=== PATIENT | female | born 1960 | race Caucasian/White ===

== ENCOUNTER 2018-06-30 11:42 | Inpatient (IN) | payer MEDICAID ==
[~2018-06-30] VITALS: Ht 144.8 cm; Wt 68.7 kg
[2018-06-30] MEDS ORDERED: hydrALAzine 20 MG INJ IV ONE (13:00)
[2018-06-30] MEDS ORDERED: BENA20TA4 PO (13:14)
--- NOTE | 2018-06-30 13:20 | ERD ---
ER Documentation Chief Complaint Chief Complaint c/o dizziness with right arm numbness x1 week. Hypertensive HPI This is a 57-year-old female with a history of hypertension who is on benazepril which was started last week who presents to the emergency room for evaluation of dizziness, chest pain, generalized weakness. The patient states that her symptoms have been present for the past 3 days however they got worse today. The patient states that she checked her blood pressure was extremely high so she came to the ER for evaluation. The patient states that she is having chest pain and describes as a pressure-like sensation in the center of the chest with mild radiation to the right and left arms. She denies any shortness of breath associated with this and describes her dizziness as a lightheaded sensation. ROS All systems reviewed and are negative except as per history of present illness. Medications Home Meds Reported Medications Benazepril Hcl* (Benazepril Hcl*) 20 Mg Tablet, 20 MG PO BID, #60 TAB 06/30/18 Allergies Allergies: Coded Allergies: No Known Allergy (Unverified , 06/30/18) PMhx/Soc History of Surgery: No Anesthesia Reaction: No Hx Neurological Disorder: No Hx Respiratory Disorders: No Hx Cardiac Disorders: Yes (HTN) Hx Psychiatric Problems: No Hx Miscellaneous Medical Probl: No Hx Alcohol Use: No Hx Substance Use: No Hx Tobacco Use: No Smoking Status: Never smoker Physical Exam Vitals Vital Signs Date Temp Pulse Resp B/P (MAP) Pulse Ox O2 O2 Flow FiO2 Time Delivery Rate 06/30/18 98.3 83 20 235/105 98 11:46 (148) Physical Exam Const: No acute distress Head: Atraumatic Eyes: Normal Conjunctiva ENT: Normal External Ears, Nose and Mouth. Neck: Full range of motion. No meningismus. Resp: Clear to auscultation bilaterally Cardio: Regular rate and rhythm, no murmurs Abd: Soft, non tender, non distended. Normal bowel sounds Skin: No petechiae or rashes Back: No midline or flank tenderness Ext: No cyanosis, or edema Neur: Awake and alert Psych: Normal Mood and Affect Result Diagram: 06/30/18 1227 06/30/18 1227 Results 24 hrs Laboratory Tests Test 06/30/18 12:27 White Blood Count 4.0 10^3/ul Red Blood Count 4.86 10^6/ul Hemoglobin 10.1 g/dl Hematocrit 35.1 % Mean Corpuscular Volume 72.2 fl Mean Corpuscular Hemoglobin 20.8 pg Mean Corpuscular Hemoglobin Concent 28.8 g/dl Red Cell Distribution Width 18.6 % Platelet Count 268 10^3/UL Mean Platelet Volume 11.1 fl Immature Granulocytes % 0.300 % Neutrophils % 75.2 % Lymphocytes % 19.0 % Monocytes % 3.5 % Eosinophils % 1.5 % Basophils % 0.5 % Nucleated Red Blood Cells % 0.0 /100WBC Immature Granulocytes # 0.010 10^3/ul Neutrophils # 3.0 10^3/ul Lymphocytes # 0.8 10^3/ul Monocytes # 0.1 10^3/ul Eosinophils # 0.1 10^3/ul Basophils # 0.0 10^3/ul Nucleated Red Blood Cells # 0.0 10^3/ul Sodium Level 143 mmol/L Potassium Level 3.9 mmol/L Chloride Level 105 mmol/L Carbon Dioxide Level 28 mmol/L Anion Gap 10 Blood Urea Nitrogen 14 mg/dl Creatinine 0.62 mg/dl Est Glomerular Filtrat Rate mL/min > 60 mL/min Glucose Level 111 mg/dl Calcium Level 9.4 mg/dl Total Bilirubin 0.2 mg/dl Direct Bilirubin 0.00 mg/dl Indirect Bilirubin 0.2 mg/dl Aspartate Amino Transf (AST/SGOT) 29 IU/L Alanine Aminotransferase (ALT/SGPT) 16 IU/L Alkaline Phosphatase 151 IU/L Troponin I < 0.012 ng/ml Total Protein 8.8 g/dl Albumin 4.6 g/dl Globulin 4.20 g/dl Albumin/Globulin Ratio 1.09 Lipase 239 U/L Current Medications Medications Dose Sig/Jayson Start Time Status Last (Trade) Ordered Route PRN Stop Time Admin Dose Reason Admin Hydralazine 10 mg ONCE ONCE 06/30/18 DC 06/30/18 HCl IV 13:00 06/30/18 12:52 (Apresoline) 13:01 Aspirin 81 mg ONCE ONCE 06/30/18 (Aspirin) PO 13:30 06/30/18 13:31 1 tab ONCE ONCE 06/30/18 Nitroglycerin SL 13:30 06/30/18 13:31 (Nitroglyceri n (Sl Tab) 0.4 Mg) Procedures/MDM EKG: #1 Rate/Rhythm: [Normal Sinus Rhythm] QRS, ST, T-waves: [No changes consistent w/ acute ischemia] Impression: [No evidence of ischemia or arrhythmia] EKG: #2 Rate/Rhythm: [Normal Sinus Rhythm] QRS, ST, T-waves: [No changes consistent w/ acute ischemia] Impression: [No evidence of ischemia or arrhythmia] Chest X-ray 1V Interpreted by me: Soft Tissue: No acute abnorma lities Bones: No acute abnormalities Mediastinum/Cardiac Silhouette/Lungs: [No acute abnormalities] This is a 57-year-old female with a history of hypertension, obesity who recently started benazepril for hypertension less than a week ago who presents to the emergency room today for evaluation of dizziness, generalized weakness, chest pain, and high blood pressure. On my evaluation the patient was hypertensive with BP of 235/105. Her heart rate was 77 bpm. The patient's EKG is nonischemic, her first troponin is negative, second EKG shows no evolution of ST segments. Her chest x-ray is clear, did give this patient 10 mg of IV hydralazine with approximately 20% reduction in her systolic blood pressure. The patient continues to have generalized weakness, and states that her chest pain has been constant. Given her age, risk factors, and uncontrolled hypertension this patient could be suffering from hypertensive emergency. She will need to be admitted for aggressive blood pressure control. The patient will be admitted to panel physician Dr. Frias at this time. Critical Care: Excluding all billable procedures Time: 44 minutes Treatments/Evaluations: Close monitoring and treatment of unstable vital signs, cardiorespiratory, and neurologic status, while maintaining tight balance of fluid, respiratory, and cardiac interventions. Departure Diagnosis: Primary Impression: Hypertensive emergency Additional Impressions: Chest pain Dizziness Condition: Stable MELISSA GARBER Jun 30, 2018 13:20
[2018-06-30] MEDS ORDERED: ONDANSETRON 4 MG INJ IV PRN ×2 (13:30→14:00)
[2018-06-30] MEDS ORDERED: ACETAMINOPHEN 325 MG TAB PO PRN (13:30)
[2018-06-30] MEDS ORDERED: ASPIRIN 81 MG TAB PO ONE (13:30)
[2018-06-30] MEDS ORDERED: NITROGLYCERIN (SL) 0.4 MG TAB SL ONE (13:30)
--- NOTE | 2018-06-30 13:36 | HP ---
Date/Time of Note Date/Time of Note DATE: 06/30/18 TIME: 13:36 Assessment/Plan VTE Prophylaxis SCD applied (from Nsg): Yes Pharmacological prophylaxis: LMWH Assessment/Plan Assessment/Plan 1. Acute chest pain - most likely secondary to hypertensive urgency - will check serial trops. Negative x1 - EKG without acute ST changes - ECHO ordered - TSH and A1c noted - lipid panel ordered 2. Right extremity weakness - CT scan shows chronic infarcts but given bilateral distribution, concern for embolic infarcts - will check MRI and MRA - ECHO with bubble ordered - continue Aspirin - Will hold off on Neurology consultation pending MRI results given chronic changes seen on CT scan 3. Hypertensive urgency - Will continue on home Benazepril and adjust as needed - Will add Norvasc as well and titrate as needed - PRN hydralazine on board 4. Anemia - will check iron levels 5. Diet - Cardiac 6. Disposition - Admit to telemetry for treatment of hypertensive urgency. Result Diagram: 06/30/18 1227 06/30/18 1227 Results 24hrs Laboratory Tests Test 06/30/18 12:27 White Blood Count 4.0 L Red Blood Count 4.86 Hemoglobin 10.1 L Hematocrit 35.1 L Mean Corpuscular Volume 72.2 L Mean Corpuscular Hemoglobin 20.8 L Mean Corpuscular Hemoglobin Concent 28.8 L Red Cell Distribution Width 18.6 H Platelet Count 268 Mean Platelet Volume 11.1 H Immature Granulocytes % 0.300 Neutrophils % 75.2 Lymphocytes % 19.0 Monocytes % 3.5 Eosinophils % 1.5 Basophils % 0.5 Nucleated Red Blood Cells % 0.0 Immature Granulocytes # 0.010 Neutrophils # 3.0 Lymphocytes # 0.8 Monocytes # 0.1 L Eosinophils # 0.1 Basophils # 0.0 Nucleated Red Blood Cells # 0.0 Sodium Level 143 Potassium Level 3.9 Chloride Level 105 Carbon Dioxide Level 28 Anion Gap 10 Blood Urea Nitrogen 14 Creatinine 0.62 Est Glomerular Filtrat Rate mL/min > 60 Glucose Level 111 Calcium Level 9.4 Total Bilirubin 0.2 Direct Bilirubin 0.00 Indirect Bilirubin 0.2 Aspartate Amino Transf (AST/SGOT) 29 Alanine Aminotransferase (ALT/SGPT) 16 Alkaline Phosphatase 151 H Troponin I < 0.012 Total Protein 8.8 H Albumin 4.6 Globulin 4.20 H Albumin/Globulin Ratio 1.09 Lipase 239 HPI/ROS Admit Date/Time Admit Date/Time 06/30/18 Hx of Present Illness 57 yo F with recent dx HTN presented to ED with dizziness, right upper extremity weakness, and chest pain. Patient states she has been experiencing worsening symptoms over the past 3 days. She was seen in clinic on Sunday due to RUE weakness and found with SBP in the 260s. She was on Benazepril which she has been taking. Patient states her symptoms worsened this am and checked her BP which was very high so she came to the ED. She also admitted to sternal chest pain, pressure like, moderate in severity. Admits to associated with dizziness but denies any shortness of breath, nausea, vomiting, abdominal pain, swelling, or urinary issues. Patient is unsure if she has any other medical issues. In the ED patient was found with SBP 220s and given Hydralazine with some improvement but BP again was elevated in 200s. Patient was given clonidine and nitro as well while in ED. ROS All 12 systems reviewed and pertinent positives as per HPI. All others negative. Constitutional: fatigue; No chills, No nausea Eyes: No discharge ENT: No congestion Respiratory: No cough, No shortness of breath, No sputum, No wheezing Cardiovascular: chest pain; No edema, No lightheadedness, No palpitations Gastrointestinal: No pain, No constipation, No diarrhea, No nausea, No vomiting Genitourinary: no complaints Musculoskeletal: No back pain, No neck pain Skin: No bruising, No laceration, No rash Neurologic: No confusion, No focal-weakness, No syncope Endocrine: no complaints Lymphatic: no complaints Psychological: nl mood/affect Immunologic: no complaints PMH/Family/Social Past Medical History Medical History: hypertension Medications Current Medications Aspirin (Aspirin) 81 mg ONCE ONCE PO ; Start 06/30/18 at 13:30; Stop 06/30/18 at 13:31 Nitroglycerin (Nitroglycerin (Sl Tab) 0.4 Mg) 1 tab ONCE ONCE SL ; Start 06/30/18 at 13:30; Stop 06/30/18 at 13:31 Coded Allergies: No Known Allergy (Unverified , 06/30/18) Past Surgical History Past Surgical Hx: other (tubal ligation) Family History Significant Family History: no pertinent family hx Social History Alcohol Use: none Smoking Status: Never smoker Drug Use: none Exam/Review of Systems Vital Signs Vitals Vital Signs Date Temp Pulse Resp B/P (MAP) Pulse Ox O2 O2 Flow FiO2 Time Delivery Rate 06/30/18 98.3 83 20 235/105 98 11:46 (148) Exam Exam General: Patient is laying in bed and answers questions appropriately. no acute distress Mentation: Patient is alert and oriented 4 Head: Normocephalic atraumatic Eyes: EOMI, pupils reactive to light Neck: Supple, nontender, midline Respiratory: Clear to auscultation bilaterally. no wheezing or rhonchi Cardiovascular: S1, S2, regular rate and rhythm, no obvious murmurs Gastrointestinal: soft, non-tender to palpation, bowel sounds heard. no rebound or guarding Neurological: Moves all extremities spontaneously. no focal deficits appreciated Skin: No skin lesions or rashes Additional Comments Home medications reviewed PROCEDURE: XR Chest. CLINICAL INDICATION: Chest pain TECHNIQUE: Single frontal view of the chest was obtained COMPARISON: None FINDINGS: The heart and mediastinum are within normal limits. The lungs are clear. There is no pleural effusion or pneumothorax. The bones and soft tissue show no acute change. IMPRESSION: No definite abnormalities are identified. RPTAT:AAJJ Physician Lucina Date Time Electronically viewed and signed by Wisam Richardson Physician on 06/30/2018 14:19 PROCEDURE: CT head CLINICAL INDICATION: Headaches TECHNIQUE: Contiguous 2.5 mm axial images were obtained from the vertex to the skull base. No intravenous contrast was administered. The calculated dose length product (DLP) = 634.23 mGy-cm. The CTDlvol = 39.60 mGy. One or more of the following dose reduction techniques were used: Automated exposure control, adjustment of the mA and or KV according to patient size, or use of iterative reconstruction technique. DICOM images are available. COMPARISON: None FINDINGS: There is no evidence of acute intracranial hemorrhage or acute territorial infarct. There is old right frontal deep white matter lacunar infarct and old left [place] radiata out a lacunar infarct. No mass or mass effect is seen on this noncontrast study. The ventricles and cisterns are normal in size and configuration. The flor-white matter differentiation is within normal limits. The visualized paranasal sinuses are normally aerated. The bony calvarium is unremarkable IMPRESSION: 1. No acute intracranial hemorrhage or acute territorial infarct. 2. 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 Given the patient's age and bilateral distribution, these may represent embolic lacunar infarcts. Consider further evaluation with MRI and MRA. RPTAT: HH .Rufus Das MD, MD Date Time Electronically viewed and signed by .Rufus Das MD, MD on 06/30/2018 14:55 RACHEL VILLALBA MD Jun 30, 2018 13:36
[2018-06-30] MEDS ORDERED: morphine 2 MG INJ IV PRN (14:00)
[2018-06-30] MEDS ORDERED: HYDROCODONE/APAP (5/325) TAB PO PRN (14:00)
[2018-06-30] MEDS ORDERED: DOCUSATE SODIUM 100 MG CAP PO PRN (14:00)
[2018-06-30] MEDS ORDERED: MAGNESIUM HYDROXIDE 30ML CUP PO PRN (14:00)
[2018-06-30] MEDS ORDERED: NITROGLYCERIN (SL) 0.4 MG TAB SL PRN (14:00)
[2018-06-30] MEDS ORDERED: LORAZEPAM 2 MG INJ IV PRN (14:00)
[2018-06-30] MEDS ORDERED: NACL 0.9% 3 ML SYG IV SCH (14:00)
[2018-06-30] MEDS: AMLODIPINE 5 MG TAB PO SCH (15:55)
[2018-06-30 16:53] VITALS: BP 150/72; PULSE 76; RESP 18
[2018-06-30 16:57] VITALS: Ht 144.8 cm; Wt 68.7 kg
[2018-06-30 17:07] VITALS: PULSE 75
[2018-06-30 20:00] VITALS: PULSE 67
[2018-06-30 20:05] VITALS: BP 142/75; PULSE 70; RESP 19
[2018-06-30] MEDS: FAMOTIDINE 20 MG TAB PO SCH (20:48)
[2018-06-30] MEDS: BENAZEPRIL 20 MG TAB PO SCH (20:48)
[2018-06-30] MEDS: ACETAMINOPHEN 325 MG TAB PO PRN (20:49)
[2018-06-30 23:42] VITALS: BP 140/67; PULSE 67; RESP 19
[2018-07-01] VITALS (10 sets, daily range): BP systolic 137–153; BP diastolic 67–79; PULSE 57–72; RESP 18–19
[2018-07-01] MEDS: FAMOTIDINE 20 MG TAB PO SCH ×2 (08:23→20:04)
[2018-07-01] MEDS: ASPIRIN 81 MG TAB PO SCH (08:24)
[2018-07-01] MEDS: AMLODIPINE 5 MG TAB PO SCH (08:24)
[2018-07-01] MEDS: BENAZEPRIL 20 MG TAB PO SCH ×2 (08:24→20:04)
[2018-07-01] MEDS ORDERED: ENOXAPARIN 40 MG/0.4 ML SYG SC SCH (09:00)
--- NOTE | 2018-07-01 12:35 | CONS ---
Consultation Date/Type/Reason Admit Date/Time 06/30/18 Type of Consult Neurology Date/Time of Note DATE: 07/01/18 TIME: 12:34 Exam/Review of Systems Exam Vitals Vital Signs Date Temp Pulse Resp B/P (MAP) Pulse Ox O2 O2 Flow FiO2 Time Delivery Rate 07/01/18 98.2 63 18 137/79 96 Room Air 11:32 (98) Intake and Output 06/30/18 06/30/18 07/01/18 1515:00 23:00 07:00 IntakeIntake Total 680 ml BalanceBalance 680 ml Results Result Diagram: 07/01/18 0550 07/01/18 0550 Results 24hrs Laboratory Tests Test 06/30/18 14:08 06/30/18 17:16 06/30/18 20:48 07/01/18 05:50 Urine Color COLORLESS Urine Clarity CLEAR Urine pH 8.0 Urine Specific [place] 1.004 Urine Ketones NEGATIVE Urine Nitrite NEGATIVE Urine Bilirubin NEGATIVE Urine Urobilinogen NEGATIVE Urine Leukocyte Esterase NEGATIVE Urine Hemoglobin NEGATIVE Urine Glucose NEGATIVE Urine Total Protein NEGATIVE Creatine Kinase 49 45 Creatine Kinase Index 1.7 1.8 Creatinine Kinase MB 0.82 0.80 (Mass) Troponin I < 0.012 < 0.012 White Blood Count 4.7 L Red Blood Count 4.39 Hemoglobin 9.2 L Hematocrit 31.9 L Mean Corpuscular Volume 72.7 L Mean Corpuscular 21.0 L Hemoglobin Mean Corpuscular 28.8 L Hemoglobin Concent Red Cell Distribution 18.8 H Width Platelet Count 251 Mean Platelet Volume 10.5 H Immature Granulocytes % 0.400 Neutrophils % 63.8 Lymphocytes % 26.9 Monocytes % 6.6 Eosinophils % 1.9 Basophils % 0.4 Nucleated Red Blood 0.0 Cells % Immature Granulocytes # 0.020 Neutrophils # 3.0 Lymphocytes # 1.3 Monocytes # 0.3 Eosinophils # 0.1 Basophils # 0.0 Nucleated Red Blood 0.0 Cells # Sodium Level 142 Potassium Level 4.2 Chloride Level 105 Carbon Dioxide Level 28 Anion Gap 9 Blood Urea Nitrogen 19 Creatinine 0.79 Est Glomerular Filtrat > 60 Rate mL/min Glucose Level 109 Calcium Level 9.3 Magnesium Level 2.0 Triglycerides Level 131 Cholesterol Level 139 LDL Cholesterol, 75 Calculated HDL Cholesterol 38 Cholesterol/HDL Ratio 3.6 Medications Medication Current Medications Benazepril HCl (Lotensin) 20 mg BID PO Last administered on 07/01/18 08:24; Admin Dose 20 MG; Start 06/30/18 at 21:00 Amlodipine Besylate (Norvasc) 5 mg DAILY PO Last administered on 07/01/18 08:24; Admin Dose 5 MG; Start 06/30/18 at 14:00 IV Flush (NS 3 ml) 3 ml PER PROTOCOL IV ; Start 06/30/18 at 14:00 Lorazepam (Ativan) 0.5 mg Q6H PRN IV .ANXIETY; Start 06/30/18 at 14:00 Ondansetron HCl (Zofran Inj) 4 mg Q6H PRN IV NAUSEA/VOMITING; Start 06/30/18 at 14:00 Nitroglycerin (Nitroglycerin (Sl Tab) 0.4 Mg) 1 tab Q5M PRN SL .CHEST PAIN; Start 06/30/18 at 14:00 Acetaminophen (Tylenol Tab) 650 mg Q6H PRN PO .PAIN 1-3 OR TEMP Last administered on 06/30/18at 20:49; Admin Dose 650 MG; Start 06/30/18 at 14:00 Acetaminophen/ Hydrocodone Bitart ([place] (5/325)) 1 tab Q6H PRN PO .PAIN 4-6; Start 06/30/18 at 14:00 Morphine Sulfate (morphine) 2 mg Q4H PRN IV .PAIN 7-10; Start 06/30/18 at 14:00 Docusate Sodium (Colace) 100 mg Q12H PRN PO .CONSTIPATION; Start 06/30/18 at 14:00 Magnesium Hydroxide (Milk Of Mag) 30 ml DAILY PRN PO .CONSTIPATION; Start 06/30/18 at 14:00 Famotidine (Pepcid) 20 mg Q12 PO Last administered on 07/01/18 08:23; Admin Dose 20 MG; Start 06/30/18 at 21:00 Enoxaparin Sodium (Lovenox) 40 mg DAILY SC Last administered on 07/01/18at 08:29; Admin Dose 40 MG; Start 07/01/18 at 09:00 Hydralazine HCl (Apresoline) 10 mg Q4H PRN IV SBP >170; Start 06/30/18 at 14:00 Aspirin (Aspirin) 81 mg DAILY PO Last administered on 07/01/18at 08:24; Admin Dose 81 MG; Start 07/01/18 at 09:00 Past Medical History Medical History: hypertension Home Meds Reported Medications Benazepril Hcl* (Benazepril Hcl*) 20 Mg Tablet, 20 MG PO BID, #60 TAB 06/30/18 Medications Current Medications Benazepril HCl (Lotensin) 20 mg BID PO Last administered on 07/01/18at 08:24; Admin Dose 20 MG; Start 06/30/18 at 21:00 Amlodipine Besylate (Norvasc) 5 mg DAILY PO Last administered on 07/01/18at 08:24; Admin Dose 5 MG; Start 06/30/18 at 14:00 IV Flush (NS 3 ml) 3 ml PER PROTOCOL IV ; Start 06/30/18 at 14:00 Lorazepam (Ativan) 0.5 mg Q6H PRN IV .ANXIETY; Start 06/30/18 at 14:00 Ondansetron HCl (Zofran Inj) 4 mg Q6H PRN IV NAUSEA/VOMITING; Start 06/30/18 at 14:00 Nitroglycerin (Nitroglycerin (Sl Tab) 0.4 Mg) 1 tab Q5M PRN SL .CHEST PAIN; Start 06/30/18 at 14:00 Acetaminophen (Tylenol Tab) 650 mg Q6H PRN PO .PAIN 1-3 OR TEMP Last administered on 06/30/18at 20:49; Admin Dose 650 MG; Start 06/30/18 at 14:00 Acetaminophen/ Hydrocodone Bitart ([place] (5/325)) 1 tab Q6H PRN PO .PAIN 4-6; Start 06/30/18 at 14:00 Morphine Sulfate (morphine) 2 mg Q4H PRN IV .PAIN 7-10; Start 06/30/18 at 14:00 Docusate Sodium (Colace) 100 mg Q12H PRN PO .CONSTIPATION; Start 06/30/18 at 14:00 Magnesium Hydroxide (Milk Of Mag) 30 ml DAILY PRN PO .CONSTIPATION; Start 06/30/18 at 14:00 Famotidine (Pepcid) 20 mg Q12 PO Last administered on 07/01/18at 08:23; Admin Dose 20 MG; Start 06/30/18 at 21:00 Enoxaparin Sodium (Lovenox) 40 mg DAILY SC Last administered on 07/01/18at 08:29; Admin Dose 40 MG; Start 07/01/18 at 09:00 Hydralazine HCl (Apresoline) 10 mg Q4H PRN IV SBP >170; Start 06/30/18 at 14:00 Aspirin (Aspirin) 81 mg DAILY PO Last administered on 07/01/18at 08:24; Admin Dose 81 MG; Start 07/01/18 at 09:00 Allergies: Coded Allergies: No Known Allergy (Unverified , 06/30/18) Past Surgical History Past Surgical Hx: other (tubal ligation) Social History Alcohol Use: none Smoking Status: Never smoker Drug Use: none JEREMY GUZMAN NP Jul 01, 2018 12:34
--- NOTE | 2018-07-01 13:26 | CONS ---
Assessment/Plan Assessment/Plan Hospital Course 57 F c/ Hx of HTN..who presents for evaluation of severely elevated BP. Head CT was obtained, which showed ? chronic lacunes.. Follow up MRI brain revealed multiple subcortical T2 hyperintensities w/ a focus of L periventricular restricted diffusion concerning for demyelination...for which neurology is consulted. There is no concomitant enhancement . Furthermore, the clinical history is without prior episodes of loss of neurologic function to corroborate a Dx of multiple sclerosis.. Of note, restricted diffusion could alternatively represent acute infarction.. MRA is unrevealing LDL 75 P: Add HIV, RPR, UDS, ESR Agree w/ asa and lipitor daily for stroke prevention for now Await Echocardiogram Check coags, then LP for CSF evaluation to include IgG synthesis and oligoclonal bands.. Add MRI C spine to evaluate for cervical demyelination.. Steroids not presently indicated PT/OT/ST as necessary Will follow clinically Consultation Date/Type/Reason Admit Date/Time 06/30/18 Type of Consult Neurology Reason for Consultation weakness Requesting Provider: DAMON KAUR Date/Time of Note DATE: 07/01/18 TIME: 13:11 Hx of Present Illness 57 yo F with recent dx HTN presented to ED with dizziness, right upper extremity weakness, and chest pain. Patient states she has been experiencing worsening symptoms over the past 3 days. She was seen in clinic on Sunday due to RUE weakness and found with SBP in the 260s. She was on Benazepril which she has been taking. Patient states her symptoms worsened this am and checked her BP which was very high so she came to the ED. She also admitted to sternal chest pain, pressure like, moderate in severity. Admits to associated with dizziness but denies any shortness of breath, nausea, vomiting, abdominal pain, swelling, or urinary issues. Patient is unsure if she has any other medical issues. In the ED patient was found with SBP 220s and given Hydralazine with some improvement but BP again was elevated in 200s. Patient was given clonidine and nitro as well while in ED. negative unless noted otherwise in HPI Exam/Review of Systems Exam Vitals Vital Signs Date Temp Pulse Resp B/P (MAP) Pulse Ox O2 O2 Flow FiO2 Time Delivery Rate 07/01/18 98.2 63 18 137/79 96 Room Air 11:32 (98) Intake and Output 4/706/30/18 07/01/18 1515:00 23:00 07:00 IntakeIntake Total 680 ml BalanceBalance 680 ml Exam PE: Gen Appearance: No Apparent Distress HEENT: Normocephalic Cardiovascular: Regular rate Lungs: Clear bilaterally Abdomen: Soft Extremities: Dry NE: The patient was alert and oriented. Language was normal. Fund of knowledge was normal. Pupils were equal and reactive to light. There was no afferent pupillary defect. Visual kevin were normal. Funduscopic examination was limited. Extra-ocular movements were full. Ptosis was absent. There was no nystagmus. Facial sensation was normal. Face was symmetric with normal strength. Hearing was intact. Palate movements were normal. Neck strength was normal. There was normal tongue bulk and speed of movement. Tone was normal. Muscle bulk was normal. I did not see fasciculations. Arms and legs were strong to confrontation. Vibration sensation was normal. Temperature and pinprick sensation was normal. Rapid alternating movements were normal. There was no dysmetria. There was no intention tremor. Gait was deferred due to bedrest. Arm and leg reflexes were 2+ and symmetric. Raza's sign was absent. Plantar responses were flexor. Results Result Diagram: 07/01/18 0550 07/01/18 0550 Results 24hrs Laboratory Tests Test 06/30/18 14:08 06/30/18 17:16 06/30/18 20:48 07/01/18 05:50 Urine Color COLORLESS Urine Clarity CLEAR Urine pH 8.0 Urine Specific [place] 1.004 Urine Ketones NEGATIVE Urine Nitrite NEGATIVE Urine Bilirubin NEGATIVE Urine Urobilinogen NEGATIVE Urine Leukocyte Esterase NEGATIVE Urine Hemoglobin NEGATIVE Urine Glucose NEGATIVE Urine Total Protein NEGATIVE Creatine Kinase 49 45 Creatine Kinase Index 1.7 1.8 Creatinine Kinase MB 0.82 0.80 (Mass) Troponin I < 0.012 < 0.012 White Blood Count 4.7 L Red Blood Count 4.39 Hemoglobin 9.2 L Hematocrit 31.9 L Mean Corpuscular Volume 72.7 L Mean Corpuscular 21.0 L Hemoglobin Mean Corpuscular 28.8 L Hemoglobin Concent Red Cell Distribution 18.8 H Width Platelet Count 251 Mean Platelet Volume 10.5 H Immature Granulocytes % 0.400 Neutrophils % 63.8 Lymphocytes % 26.9 Monocytes % 6.6 Eosinophils % 1.9 Basophils % 0.4 Nucleated Red Blood 0.0 Cells % Immature Granulocytes # 0.020 Neutrophils # 3.0 Lymphocytes # 1.3 Monocytes # 0.3 Eosinophils # 0.1 Basophils # 0.0 Nucleated Red Blood 0.0 Cells # Sodium Level 142 Potassium Level 4.2 Chloride Level 105 Carbon Dioxide Level 28 Anion Gap 9 Blood Urea Nitrogen 19 Creatinine 0.79 Est Glomerular Filtrat > 60 Rate mL/min Glucose Level 109 Calcium Level 9.3 Magnesium Level 2.0 Triglycerides Level 131 Cholesterol Level 139 LDL Cholesterol, 75 Calculated HDL Cholesterol 38 Cholesterol/HDL Ratio 3.6 Medications Medication Current Medications Benazepril HCl (Lotensin) 20 mg BID PO Last administered on 07/01/18at 08:24; Admin Dose 20 MG; Start 06/30/18 at 21:00 Amlodipine Besylate (Norvasc) 5 mg DAILY PO Last administered on 07/01/18at 08:24; Admin Dose 5 MG; Start 06/30/18 at 14:00 IV Flush (NS 3 ml) 3 ml PER PROTOCOL IV ; Start 06/30/18 at 14:00 Lorazepam (Ativan) 0.5 mg Q6H PRN IV .ANXIETY; Start 06/30/18 at 14:00 Ondansetron HCl (Zofran Inj) 4 mg Q6H PRN IV NAUSEA/VOMITING; Start 06/30/18 at 14:00 Nitroglycerin (Nitroglycerin (Sl Tab) 0.4 Mg) 1 tab Q5M PRN SL .CHEST PAIN; Start 06/30/18 at 14:00 Acetaminophen (Tylenol Tab) 650 mg Q6H PRN PO .PAIN 1-3 OR TEMP Last administered on 06/30/18at 20:49; Admin Dose 650 MG; Start 06/30/18 at 14:00 Acetaminophen/ Hydrocodone Bitart ([place] (5/325)) 1 tab Q6H PRN PO .PAIN 4-6; Start 06/30/18 at 14:00 Morphine Sulfate (morphine) 2 mg Q4H PRN IV .PAIN 7-10; Start 06/30/18 at 14:00 Docusate Sodium (Colace) 100 mg Q12H PRN PO .CONSTIPATION; Start 06/30/18 at 14:00 Magnesium Hydroxide (Milk Of Mag) 30 ml DAILY PRN PO .CONSTIPATION; Start 06/30/18 at 14:00 Famotidine (Pepcid) 20 mg Q12 PO Last administered on 07/01/18at 08:23; Admin Dose 20 MG; Start 06/30/18 at 21:00 Enoxaparin Sodium (Lovenox) 40 mg DAILY SC Last administered on 07/01/18at 08:29; Admin Dose 40 MG; Start 07/01/18 at 09:00 Hydralazine HCl (Apresoline) 10 mg Q4H PRN IV SBP >170; Start 06/30/18 at 14:00 Aspirin (Aspirin) 81 mg DAILY PO Last administered on 07/01/18 08:24; Admin Dose 81 MG; Start 07/01/18 at 09:00 Atorvastatin Calcium (Lipitor) 80 mg HS PO ; Start 07/01/18 at 21:00 Past Medical History reviewed Medical History: hypertension Home Meds Reported Medications Benazepril Hcl* (Benazepril Hcl*) 20 Mg Tablet, 20 MG PO BID, #60 TAB 06/30/18 Medications Current Medications Benazepril HCl (Lotensin) 20 mg BID PO Last administered on 07/01/18at 08:24; Admin Dose 20 MG; Start 06/30/18 at 21:00 Amlodipine Besylate (Norvasc) 5 mg DAILY PO Last administered on 07/01/18 08:24; Admin Dose 5 MG; Start 06/30/18 at 14:00 IV Flush (NS 3 ml) 3 ml PER PROTOCOL IV ; Start 06/30/18 at 14:00 Lorazepam (Ativan) 0.5 mg Q6H PRN IV .ANXIETY; Start 06/30/18 at 14:00 Ondansetron HCl (Zofran Inj) 4 mg Q6H PRN IV NAUSEA/VOMITING; Start 06/30/18 at 14:00 Nitroglycerin (Nitroglycerin (Sl Tab) 0.4 Mg) 1 tab Q5M PRN SL .CHEST PAIN; Start 06/30/18 at 14:00 Acetaminophen (Tylenol Tab) 650 mg Q6H PRN PO .PAIN 1-3 OR TEMP Last administered on 06/30/18at 20:49; Admin Dose 650 MG; Start 06/30/18 at 14:00 Acetaminophen/ Hydrocodone Bitart ([place] (5/325)) 1 tab Q6H PRN PO .PAIN 4-6; Start 06/30/18 at 14:00 Morphine Sulfate (morphine) 2 mg Q4H PRN IV .PAIN 7-10; Start 06/30/18 at 14:00 Docusate Sodium (Colace) 100 mg Q12H PRN PO .CONSTIPATION; Start 06/30/18 at 14:00 Magnesium Hydroxide (Milk Of Mag) 30 ml DAILY PRN PO .CONSTIPATION; Start 06/30/18 at 14:00 Famotidine (Pepcid) 20 mg Q12 PO Last administered on 07/01/18at 08:23; Admin Dose 20 MG; Start 06/30/18 at 21:00 Enoxaparin Sodium (Lovenox) 40 mg DAILY SC Last administered on 07/01/18at 08:29; Admin Dose 40 MG; Start 07/01/18 at 09:00 Hydralazine HCl (Apresoline) 10 mg Q4H PRN IV SBP >170; Start 06/30/18 at 14:00 Aspirin (Aspirin) 81 mg DAILY PO Last administered on 07/01/18at 08:24; Admin Dose 81 MG; Start 07/01/18 at 09:00 Atorvastatin Calcium (Lipitor) 80 mg HS PO ; Start 07/01/18 at 21:00 Allergies: Coded Allergies: No Known Allergy (Unverified , 06/30/18) Past Surgical History Past Surgical Hx: other (tubal ligation) Social History Alcohol Use: none Smoking Status: Never smoker Drug Use: none KELLY BOTELLO Jul 01, 2018 13:21 JEREMY GUZMAN NP Jul 01, 2018 14:28
[2018-07-01] MEDS: ACETAMINOPHEN 325 MG TAB PO PRN (16:15)
--- NOTE | 2018-07-01 19:19 | PN ---
Date/Time of Note Date/Time of Note DATE: 07/01/18 TIME: Objective Vitals Vital Signs Date Temp Pulse Resp B/P (MAP) Pulse Ox O2 O2 Flow FiO2 Time Delivery Rate 07/01/18 72 17:10 07/01/18 98.0 18 145/74 95 Room Air 15:29 (97) Intake and Output 06/30/18 06/30/18 07/01/18 1515:00 23:00 07:00 IntakeIntake Total 680 ml BalanceBalance 680 ml Results Result Diagram: 07/01/18 1407 07/01/18 0550 Medications Medications Current Medications Benazepril HCl (Lotensin) 20 mg BID PO Last administered on 07/01/18at 08:24; Admin Dose 20 MG; Start 06/30/18 at 21:00 Amlodipine Besylate (Norvasc) 5 mg DAILY PO Last administered on 07/01/18 08:24; Admin Dose 5 MG; Start 06/30/18 at 14:00 IV Flush (NS 3 ml) 3 ml PER PROTOCOL IV ; Start 06/30/18 at 14:00 Lorazepam (Ativan) 0.5 mg Q6H PRN IV .ANXIETY; Start 06/30/18 at 14:00 Ondansetron HCl (Zofran Inj) 4 mg Q6H PRN IV NAUSEA/VOMITING; Start 06/30/18 at 14:00 Nitroglycerin (Nitroglycerin (Sl Tab) 0.4 Mg) 1 tab Q5M PRN SL .CHEST PAIN; Start 06/30/18 at 14:00 Acetaminophen (Tylenol Tab) 650 mg Q6H PRN PO .PAIN 1-3 OR TEMP Last administered on 07/01/18at 16:15; Admin Dose 650 MG; Start 06/30/18 at 14:00 Acetaminophen/ Hydrocodone Bitart ([place] (5/325)) 1 tab Q6H PRN PO .PAIN 4-6; Start 06/30/18 at 14:00 Morphine Sulfate (morphine) 2 mg Q4H PRN IV .PAIN 7-10; Start 06/30/18 at 14:00 Docusate Sodium (Colace) 100 mg Q12H PRN PO .CONSTIPATION; Start 06/30/18 at 14:00 Magnesium Hydroxide (Milk Of Mag) 30 ml DAILY PRN PO .CONSTIPATION; Start 06/30/18 at 14:00 Famotidine (Pepcid) 20 mg Q12 PO Last administered on 07/01/18at 08:23; Admin Dose 20 MG; Start 06/30/18 at 21:00 Enoxaparin Sodium (Lovenox) 40 mg DAILY SC Last administered on 07/01/18at 08:29; Admin Dose 40 MG; Start 07/01/18 at 09:00; Status Hold Hydralazine HCl (Apresoline) 10 mg Q4H PRN IV SBP >170; Start 06/30/18 at 14:00 Aspirin (Aspirin) 81 mg DAILY PO Last administered on 07/01/18at 08:24; Admin Dose 81 MG; Start 07/01/18 at 09:00 Atorvastatin Calcium (Lipitor) 80 mg HS PO ; Start 07/01/18 at 21:00 VTE Prophylaxis Risk score (from Ns)>0 risk: 1 SCD applied (from [facility]): Yes Lines/Catheters IV Catheter Type: Morgan in Place: No Assessment/Plan Hospital Course Subjective Patient stating that most of her initial issues are resolving Objective Physical exam General: Patient is laying in bed and answers questions appropriately Mentation: Patient is alert and oriented 4, Head: Normocephalic atraumatic Eyes: EOMI, pupils reactive to light Neck: Supple, nontender, midline Respiratory: Clear to auscultation bilaterally Cardiovascular: regular rate, no obvious murmurs Gastrointestinal: non-tender to palpation, bowel sounds heard. Neurological: Moves all extremities spontaneously Skin: No new skin lesions Assessment/Plan 1. Acute chest pain, resolved - most likely secondary to hypertensive urgency -Serial troponins negative - EKG without acute ST changes - ECHO ordered - TSH and A1c noted - lipid panel noted 2. Right extremity weakness/numbness, significant improvement, near identical physical exam to L side. - CT scan shows chronic infarcts but given bilateral distribution, concern for embolic infarcts - MRI showing ?MS vs infarct? - ECHO with bubble ordered - continue Aspirin - cont statin - neurology consulted 3. Hypertensive urgency - Will continue on home Benazepril and adjust as needed - Will cont Norvasc as well and titrate as needed - PRN hydralazine on board 4. Anemia - will check iron levels 5. Diet - Cardiac 6. Disposition -Neurology recommendations pending, more imaging studies needed, no steroids for now. DAMON KAUR Jul 01, 2018 19:19
[2018-07-01] MEDS: ATORVASTATIN 80 MG TAB PO SCH (20:04)
[2018-07-02] VITALS (15 sets, daily range): BP systolic 134–190; BP diastolic 63–92; PULSE 58–89; RESP 18–20
[2018-07-02] MEDS: ACETAMINOPHEN 325 MG TAB PO PRN ×2 (00:06→21:51)
[2018-07-02] MEDS: ASPIRIN 81 MG TAB PO SCH (08:32)
--- NOTE | 2018-07-02 10:47 | CONS ---
Assessment/Plan Assessment/Plan Hospital Course 57 F c/ Hx of HTN..who presents for evaluation of severely elevated BP. She reported R sided weakness in this context... Head CT was obtained, which showed ? chronic lacunes.. Follow up MRI brain revealed multiple subcortical T2 hyperintensities w/ a focus of L periventricular restricted diffusion concerning for demyelination...for which neurology is consulted. There is no concomitant cerebral enhancement . Furthermore, the clinical history is without prior episodes of loss of neurologic function to corroborate a Dx of multiple sclerosis.. Restricted diffusion could, thus, alternatively represent acute infarction.. MRI C spine is without abnl cord signal.. MRA is unrevealing ESR 35 LDL 75 HIV/RPR neg P: Agree w/ asa and lipitor daily for stroke prevention for now Steroids not presently indicated Await Echocardiogram Await LP for CSF evaluation to include IgG synthesis and oligoclonal bands.. PT/OT/ST as necessary Will follow clinically Consultation Date/Type/Reason Admit Date/Time Jun 30, 2018 at 13:30 Type of Consult Neurology Reason for Consultation weakness Requesting Provider: DAMON KAUR Date/Time of Note DATE: 07/02/18 TIME: 10:43 24 HR Interval Summary Free Text/Dictation Continues acute care Exam Vital Signs Vitals Vital Signs Date Temp Pulse Resp B/P (MAP) Pulse Ox O2 O2 Flow FiO2 Time Delivery Rate 07/02/18 61 08:00 07/02/18 98.0 20 139/76 99 07:08 (97) 07/02/18 Room Air 04:00 Intake and Output 07/01/18 07/01/18 07/02/18 1515:00 23:00 07:00 IntakeIntake Total 720 ml 600 ml BalanceBalance 720 ml 600 ml Exam PE: Gen Appearance: No Apparent Distress HEENT: Normocephalic Cardiovascular: Regular rate Lungs: Clear bilaterally Abdomen: Soft Extremities: Dry NE: The patient was alert and oriented. Language was normal. Fund of knowledge was normal. Pupils were equal and reactive to light. There was no afferent pupillary defect. Visual kevin were normal. Funduscopic examination was limited. Extra-ocular movements were full. Ptosis was absent. There was no nystagmus. Facial sensation was normal. Face was symmetric with normal strength. Hearing was intact. Palate movements were normal. Neck strength was normal. There was normal tongue bulk and speed of movement. Tone was normal. Muscle bulk was normal. I did not see fasciculations. Arms and legs were strong to confrontation. Vibration sensation was normal. Temperature and pinprick sensation was normal. Rapid alternating movements were normal. There was no dysmetria. There was no intention tremor. Gait was deferred due to bedrest. Arm and leg reflexes were 2+ and symmetric. Raza's sign was absent. Plantar responses were flexor. KELLY BOTELLO Jul 02, 2018 10:47 JEREMY GUZMAN NP Jul 02, 2018 14:22
[2018-07-02] MEDS ORDERED: SOD CHLORIDE 0.45% 1,000 ML IV SCH (11:00)
--- NOTE | 2018-07-02 12:22 | RADRPT ---
Echocardiogram Report Patient Name: BETO TRUONG LAURAPatient ID: [id number] : 1960 (57y 10m)Study Date: 07/01/2018 1:55:05 PM Gender: FAccession #: [id number] Tech: Mika Mantilla [facility] Location: [address] Ref.Physician: RACHEL VILLALBA Height(Cm): BSA: Weight(Kg): Quality: AdequateAccount #: Procedures: Echocardiographic Report: Transthoracic echocardiogram with complete 2D, M-Mode, and doppler examination. Indications: Chest Pain, uncotrolled HTN w/ bubble study. Measurements: 2D/M Mode Doppler Measurement Value Normal Range Measurement Value Normal Range LVIDd 2D 3.4 [ 3.8 - 5.2 ] cm AV Peak Greg 1.9 [ 100.0 - 170.0 ] cm/sec LVIDs 2D 2.5 [ 2.2 - 3.5 ] cm AV Peak PG 14.0 [ 2.0 - 9.0 ] mmHg LVPWd 2D 1.3 [ 0.6 - 0.9 ] cm LVOT Peak Greg 1.2 [ 70.0 - 110.0 ] cm/sec IVSd 2D 1.3 [ 0.6 - 0.9 ] cm LVOT Peak PG 5.0 [ 2.0 - 6.0 ] mmHg AoR Diam 2D 2.7 [ 2.3 - 3.1 ] cm MV E Peak Greg 0.6 [ 60.0 - 130.0 ] cm/sec EDV 2D 46.4 [ 46.0 - 106.0 ] ml MV A Peak Greg 0.7 [ 100.0 - 120.0 ] cm/sec ESV 2D 21.2 [ 14.0 - 42.0 ] ml MV E/A 0.8 [ 0.8 - 1.5 ] ratio EF 2D 54.3 [ 54.0 - 74.0 ] percent MV Decel Time 211 [ 104 - 258 ] msec LA Dimen 2D 3.3 [ 2.7 - 3.8 ] cm Lat E` Greg 0.1 [ 10.0 - 15.0 ] cm/sec Lateral E/E` 8.4 [ 1.0 - 2.0 ] ratio MV E/A 0.8 [ 0.8 - 1.5 ] ratio TR Peak Greg 1.9 [ 100.0 - 280.0 ] cm/sec TR Peak PG 15.0 mmHg RVSP 18.0 [ 10.0 - 36.0 ] mmHg Findings: Left Ventricle: Normal left ventricular systolic function. Normal left ventricular cavity size. Sigmoid septum. Mild concentric left ventricular hypertrophy. Ejection fraction is visually estimated at 65 %. Tissue Doppler/Mitral Doppler indices are consistent with impaired relaxation (Stage I diastolic dysfunction). Right Ventricle: Normal right ventricular size. Normal right ventricular systolic function. Left Atrium: There is mild enlargement of left atrium. Right Atrium: The right atrium is normal in size. Atrial Septum: Bubble study was performed with and with out valsalva indicating no evidence of intra atrial shunt. Mitral Valve: Normal appearance of the mitral valve. Normal appearance and function of the mitral valve with trace physiologic regurgitation. Aortic Valve: Normal appearance of the aortic valve. Trace aortic valve regurgitation. Tricuspid Valve: Normal appearance of the tricuspid valve. Estimated peak PA systolic pressure 18 mmHg. There is trace tricuspid regurgitation. Pericardium: Normal pericardium with no significant pericardial effusion. Left pleural effusion seen. Aorta: Normal aortic root. IVC: Normal size and normal respiratory collapse consistent with normal right atrial pressure. Conclusions: Normal left ventricular systolic function. Normal left ventricular cavity size. Sigmoid septum. Mild concentric left ventricular hypertrophy. Ejection fraction is visually estimated at 65 %. Tissue Doppler/Mitral Doppler indices are consistent with impaired relaxation (Stage I diastolic dysfunction). No significant valvular stenosis or regurgitation seen. Bubble study was performed with and with out valsalva indicating no evidence of intra atrial shunt. Estimated peak PA systolic pressure 18 mmHg. Normal size and normal respiratory collapse consistent with normal right atrial pressure. Electronically Signed By: Morteza Hendrix 2018-07-02 12:21:48 PDT
[2018-07-02] MEDS: FAMOTIDINE 20 MG TAB PO SCH ×2 (12:57→20:07)
[2018-07-02] MEDS: BENAZEPRIL 20 MG TAB PO SCH ×2 (12:57→20:08)
[2018-07-02] MEDS: AMLODIPINE 5 MG TAB PO SCH (12:58)
[2018-07-02] MEDS ORDERED: LIDOCAINE 1% (MPF) 5 ML VIAL ONE ×2 (15:19)
--- NOTE | 2018-07-02 15:58 | PN ---
Date/Time of Note Date/Time of Note DATE: 07/02/18 TIME: 15:57 Objective Vitals Vital Signs Date Temp Pulse Resp B/P (MAP) Pulse Ox O2 O2 Flow FiO2 Time Delivery Rate 07/02/18 98.1 62 20 170/74 96 15:39 (106) 07/02/18 Room Air 04:00 Intake and Output 07/01/18 07/01/18 07/02/18 1515:00 23:00 07:00 IntakeIntake Total 720 ml 600 ml BalanceBalance 720 ml 600 ml Results Result Diagram: 07/02/18 0603 07/02/18 0603 Medications Medications Current Medications Benazepril HCl (Lotensin) 20 mg BID PO Last administered on 07/02/18at 12:57; Admin Dose 20 MG; Start 06/30/18 at 21:00 Amlodipine Besylate (Norvasc) 5 mg DAILY PO Last administered on 07/02/18at 12:58; Admin Dose 5 MG; Start 06/30/18 at 14:00 IV Flush (NS 3 ml) 3 ml PER PROTOCOL IV ; Start 06/30/18 at 14:00 Lorazepam (Ativan) 0.5 mg Q6H PRN IV .ANXIETY; Start 06/30/18 at 14:00 Ondansetron HCl (Zofran Inj) 4 mg Q6H PRN IV NAUSEA/VOMITING; Start 06/30/18 at 14:00 Nitroglycerin (Nitroglycerin (Sl Tab) 0.4 Mg) 1 tab Q5M PRN SL .CHEST PAIN; Start 06/30/18 at 14:00 Acetaminophen (Tylenol Tab) 650 mg Q6H PRN PO .PAIN 1-3 OR TEMP Last administered on 07/02/18at 00:06; Admin Dose 650 MG; Start 06/30/18 at 14:00 Acetaminophen/ Hydrocodone Bitart ([place] (5/325)) 1 tab Q6H PRN PO .PAIN 4-6; Start 06/30/18 at 14:00 Morphine Sulfate (morphine) 2 mg Q4H PRN IV .PAIN 7-10; Start 06/30/18 at 14:00 Docusate Sodium (Colace) 100 mg Q12H PRN PO .CONSTIPATION; Start 06/30/18 at 14:00 Magnesium Hydroxide (Milk Of Mag) 30 ml DAILY PRN PO .CONSTIPATION; Start 06/30/18 at 14:00 Famotidine (Pepcid) 20 mg Q12 PO Last administered on 07/02/18at 12:57; Admin Dose 20 MG; Start 06/30/18 at 21:00 Enoxaparin Sodium (Lovenox) 40 mg DAILY SC Last administered on 07/01/18at 08:29; Admin Dose 40 MG; Start 07/01/18 at 09:00; Status Hold Hydralazine HCl (Apresoline) 10 mg Q4H PRN IV SBP >170; Start 06/30/18 at 14:00 Aspirin (Aspirin) 81 mg DAILY PO Last administered on 07/01/18 08:24; Admin Dose 81 MG; Start 07/01/18 at 09:00 Atorvastatin Calcium (Lipitor) 80 mg HS PO Last administered on 07/01/18at 20:04; Admin Dose 80 MG; Start 07/01/18 at 21:00 Sodium Chloride 1,000 ml @ 50 mls/hr Q20H IV Last administered on 07/02/18at 11:01; Admin Dose 50 MLS/HR; Start 07/02/18 at 11:00 VTE Prophylaxis Risk score (from Nsg)>0 risk: 1 SCD applied (from Ns): Yes Lines/Catheters IV Catheter Type: Morgan in Place: No Assessment/Plan Hospital Course Subjective Patient stating she feels back to baseline Objective Physical exam General: Patient is laying in bed and answers questions appropriately Mentation: Patient is alert and oriented 4, Head: Normocephalic atraumatic Eyes: EOMI, pupils reactive to light Neck: Supple, nontender, midline Respiratory: Clear to auscultation bilaterally Cardiovascular: regular rate, no obvious murmurs Gastrointestinal: non-tender to palpation, bowel sounds heard. Neurological: Moves all extremities spontaneously Skin: No new skin lesions Assessment/Plan 1. Acute chest pain, resolved - most likely secondary to hypertensive urgency -Serial troponins negative - EKG without acute ST changes - ECHO noted - TSH and A1c noted - lipid panel noted 2. Right extremity weakness/numbness, resolved - CT scan shows chronic infarcts but given bilateral distribution, concern for embolic infarcts? - MRI showing ?MS vs infarct? - ECHO with bubble ordered - continue Aspirin - cont statin - neurology consulted -MRI cervical noted -Lumbar puncture results pending 3. Hypertensive urgency - Will continue on home Benazepril and adjust as needed - Will cont Norvasc as well and titrate as needed - PRN hydralazine on board 4. Anemia - will check iron levels 5. Diet - Cardiac 6. Disposition -Neurology recommendations pending, more studies needed, no steroids for now. DAMON KAUR Jul 02, 2018 15:58
[2018-07-02] MEDS: hydrALAzine 20 MG INJ IV PRN (17:38)
[2018-07-02] MEDS ORDERED: LABETALOL HCL 20MG INJ IV ONE (20:00)
[2018-07-02] MEDS: ATORVASTATIN 80 MG TAB PO SCH (20:07)
[2018-07-03] VITALS (11 sets, daily range): BP systolic 121–177; BP diastolic 59–78; PULSE 62–85; RESP 18–19
[2018-07-03] MEDS: ACETAMINOPHEN 325 MG TAB PO PRN ×3 (06:40→20:58)
[2018-07-03] MEDS: FAMOTIDINE 20 MG TAB PO SCH ×2 (07:54→20:54)
[2018-07-03] MEDS: ASPIRIN 81 MG TAB PO SCH (07:55)
[2018-07-03] MEDS: BENAZEPRIL 20 MG TAB PO SCH ×2 (07:55→20:58)
[2018-07-03] MEDS: AMLODIPINE 5 MG TAB PO SCH (07:55)
[2018-07-03] MEDS: hydrALAzine 20 MG INJ IV PRN (07:56)
[2018-07-03] MEDS ORDERED: AMLODIPINE 5 MG TAB PO ONE (10:30)
--- NOTE | 2018-07-03 11:19 | CONS ---
Assessment/Plan Assessment/Plan Hospital Course 57 F c/ Hx of HTN..who presents for evaluation of severely elevated BP. She reported R sided weakness in this context... Head CT was obtained, which showed ? chronic lacunes.. Follow up MRI brain revealed multiple subcortical T2 hyperintensities w/ a focus of L periventricular restricted diffusion concerning for demyelination...for which neurology is consulted. There is no concomitant cerebral enhancement . Furthermore, the clinical history is without prior episodes of loss of neurologic function to corroborate a Dx of multiple sclerosis.. Restricted diffusion could, thus, alternatively represent acute infarction.. MRI C spine is without abnl cord signal.. MRA is unrevealing; Echo was most notable for mild LA enlargement ESR 35 LDL 75 HIV/RPR neg CSF panel wnl; CSF IgG synthesis and oligoclonal bands in process P: Continue asa and lipitor daily for stroke prevention for now Steroids not presently indicated PT/OT/ST as necessary BP control and other medical management per primary Will follow clinically Consultation Date/Type/Reason Admit Date/Time Jun 30, 2018 at 13:30 Type of Consult Neurology Reason for Consultation weakness Requesting Provider: DAMON KAUR Date/Time of Note DATE: 07/03/18 TIME: 11:15 24 HR Interval Summary Free Text/Dictation s/p LP Notes recurrence of Right arm weakness this am Notes headache w/ nausea and vomiting Exam Vital Signs Vitals Vital Signs Date Temp Pulse Resp B/P (MAP) Pulse Ox O2 O2 Flow FiO2 Time Delivery Rate 07/03/18 81 158/77 08:20 (104) 07/03/18 98.5 18 100 07:23 07/03/18 Room Air 04:00 Intake and Output 07/02/18 07/02/18 07/03/18 1515:00 23:00 07:00 IntakeIntake Total 585 ml 600 ml BalanceBalance 585 ml 600 ml KELLY BOTELLO Jul 03, 2018 11:19
--- NOTE | 2018-07-03 13:49 | PN ---
Date/Time of Note Date/Time of Note DATE: 07/03/18 TIME: 13:47 Objective Vitals Vital Signs Date Temp Pulse Resp B/P (MAP) Pulse Ox O2 O2 Flow FiO2 Time Delivery Rate 07/03/18 98.4 74 18 127/60 96 11:21 (82) 07/03/18 Room Air 04:00 Intake and Output 07/02/18 07/02/18 07/03/18 1414:59 22:59 06:59 IntakeIntake Total 585 ml 600 ml BalanceBalance 585 ml 600 ml Results Result Diagram: 07/03/1860407/03/18604 Medications Medications Current Medications Benazepril HCl (Lotensin) 20 mg BID PO Last administered on 07/03/18at 07:55; Admin Dose 20 MG; Start 06/30/18 at 21:00 IV Flush (NS 3 ml) 3 ml PER PROTOCOL IV ; Start 06/30/18 at 14:00 Lorazepam (Ativan) 0.5 mg Q6H PRN IV .ANXIETY; Start 06/30/18 at 14:00 Nitroglycerin (Nitroglycerin (Sl Tab) 0.4 Mg) 1 tab Q5M PRN SL .CHEST PAIN; Start 06/30/18 at 14:00 Acetaminophen (Tylenol Tab) 650 mg Q6H PRN PO .PAIN 1-3 OR TEMP Last administered on 07/03/18at 06:40; Admin Dose 650 MG; Start 06/30/18 at 14:00 Acetaminophen/ Hydrocodone Bitart ([place] (5/325)) 1 tab Q6H PRN PO .PAIN 4-6; Start 06/30/18 at 14:00 Morphine Sulfate (morphine) 2 mg Q4H PRN IV .PAIN 7-10 Last administered on 07/02/18at 19:30; Admin Dose 2 MG; Start 06/30/18 at 14:00 Docusate Sodium (Colace) 100 mg Q12H PRN PO .CONSTIPATION; Start 06/30/18 at 14:00 Magnesium Hydroxide (Milk Of Mag) 30 ml DAILY PRN PO .CONSTIPATION; Start 06/30/18 at 14:00 Famotidine (Pepcid) 20 mg Q12 PO Last administered on 07/03/18at 07:54; Admin Dose 20 MG; Start 06/30/18 at 21:00 Enoxaparin Sodium (Lovenox) 40 mg DAILY SC Last administered on 07/01/18at 08:29; Admin Dose 40 MG; Start 07/01/18 at 09:00; Status Hold Hydralazine HCl (Apresoline) 10 mg Q4H PRN IV SBP >170 Last administered on 07/03/18at 07:56; Admin Dose 10 MG; Start 06/30/18 at 14:00 Aspirin (Aspirin) 81 mg DAILY PO Last administered on 07/03/18at 07:55; Admin Dose 81 MG; Start 07/01/18 at 09:00 Atorvastatin Calcium (Lipitor) 80 mg HS PO Last administered on 07/02/18at 20:07; Admin Dose 80 MG; Start 07/01/18 at 21:00 Ondansetron HCl (Zofran Inj) 4 mg Q4H PRN IV NAUSEA/VOMITING; Start 07/03/18 at 10:30 Amlodipine Besylate (Norvasc) 10 mg DAILY PO ; Start 07/04/18 at 09:00 VTE Prophylaxis Risk score (from Ns)>0 risk: 1 SCD applied (from Ns): Yes Lines/Catheters IV Catheter Type: Morgan in Place: No Assessment/Plan Hospital Course Subjective Patient stating she feels back to baseline after recurrence of right arm numbness and headache this morning Objective Physical exam General: Patient is laying in bed and answers questions appropriately Mentation: Patient is alert and oriented 4, Head: Normocephalic atraumatic Eyes: EOMI, pupils reactive to light Neck: Supple, nontender, midline Respiratory: Clear to auscultation bilaterally Cardiovascular: regular rate, no obvious murmurs Gastrointestinal: non-tender to palpation, bowel sounds heard. Neurological: Moves all extremities spontaneously Skin: No new skin lesions Assessment/Plan 1. Acute chest pain, resolved - most likely secondary to hypertensive urgency -Serial troponins negative - EKG without acute ST changes - ECHO noted - TSH and A1c noted - lipid panel noted 2. Right extremity weakness/numbness, resolved - CT scan shows chronic infarcts but given bilateral distribution, concern for embolic infarcts? - MRI showing ?MS vs infarct? - ECHO with bubble ordered - continue Aspirin - cont statin - neurology consulted -MRI cervical noted -Lumbar puncture results noted and some pending still from neurological standpoint 3. Hypertensive urgency - Will continue on home Benazepril and adjust as needed - Will cont Norvasc as well and titrate as needed - PRN hydralazine on board 4. Anemia - will check iron levels, recommend oral supplementation outpatient 5. Diet - Cardiac 6. Disposition -Watch blood pressure -Neurology still pending workup DAMON KAUR Jul 03, 2018 13:49
[2018-07-03] MEDS: ATORVASTATIN 80 MG TAB PO SCH (20:54)
[2018-07-04] VITALS (12 sets, daily range): BP systolic 103–141; BP diastolic 56–77; PULSE 51–78; RESP 16–20
[2018-07-04] MEDS: ASPIRIN 81 MG TAB PO SCH (09:02)
[2018-07-04] MEDS: FAMOTIDINE 20 MG TAB PO SCH ×2 (09:02→20:09)
[2018-07-04] MEDS: AMLODIPINE 5 MG TAB PO SCH (09:03)
[2018-07-04] MEDS: BENAZEPRIL 20 MG TAB PO SCH ×2 (09:03→20:10)
--- NOTE | 2018-07-04 11:41 | CONS ---
Assessment/Plan Assessment/Plan Hospital Course 57 F c/ Hx of HTN..who presents for evaluation of severely elevated BP. She reported R sided weakness in this context... Head CT was obtained, which showed ? chronic lacunes.. Follow up MRI brain revealed multiple subcortical T2 hyperintensities w/ a focus of L periventricular restricted diffusion concerning for demyelination...for which neurology is consulted. She additionally reports a loss of neurologic function 3 months ago... (L face numbness x several days), which is sufficient to corroborate the clinical Dx of relapsing remitting multiple sclerosis. Acute infarction is less likely As an aside, she has frequent headaches w/ photophobia and nausea that are co nsistent w/ migraine without aura MRI C spine is without abnl cord signal.. MRA is unrevealing; Echo was most notable for mild LA enlargement ESR 35 LDL 75 HIV/RPR neg CSF panel wnl; CSF IgG synthesis and oligoclonal bands in process P: Start topamax 25 mg BID for migraine ppx...to be titrated to goal of 50mg bid if tolerated, as an outpatients.. Recommend Copaxone for probable MS; should schedule injection training with [employer] on d/c.. Steroids not presently indicated PT/OT/ST as necessary BP control and other medical management per primary Will follow clinically Consultation Date/Type/Reason Admit Date/Time Jun 30, 2018 at 13:30 Type of Consult Neurology Requesting Provider: DAMON KAUR Date/Time of Note DATE: 07/04/18 TIME: 11:40 24 HR Interval Summary Free Text/Dictation States that her R arm weakness has mostly resolved. She also endorses L facial tingling that occurred for 2 days around 3 mo ago. Exam Vital Signs Vitals Vital Signs Date Temp Pulse Resp B/P (MAP) Pulse Ox O2 O2 Flow FiO2 Time Delivery Rate 07/04/18 98.3 68 18 131/70 94 11:25 (90) 07/04/18 Room Air 05:20 Intake and Output 07/03/18 07/03/18 07/04/18 1515:00 23:00 07:00 IntakeIntake Total 1200 ml 500 ml BalanceBalance 1200 ml 500 ml Exam PE: Gen Appearance: No Apparent Distress HEENT: Normocephalic Cardiovascular: Regular rate Lungs: Clear bilaterally Abdomen: Soft Extremities: Dry NE: The patient was alert and oriented. Language was normal. Fund of knowledge was normal. Pupils were equal and reactive to light. There was no afferent pupillary defect. Visual kevin were normal. Funduscopic examination was limited. Extra-ocular movements were full. Ptosis was absent. There was no nystagmus. Facial sensation was normal. Face was symmetric with normal strength. Hearing was intact. Palate movements were normal. Neck strength was normal. There was normal tongue bulk and speed of movement. Tone was normal. Muscle bulk was normal. I did not see fasciculations. Arms and legs were strong. Vibration sensation was normal. Temperature and pinprick sensation was normal. Rapid alternating movements were normal. There was no dysmetria. There was no intention tremor. Gait was deferred due to bedrest. Arm and leg reflexes were 2+ and symmetric. Raza's sign was absent. Plantar responses were flexor. JEREMY GUZMAN NP Jul 04, 2018 11:41 KELLY BOTELLO Jul 04, 2018 14:03
[2018-07-04] MEDS ORDERED: TOPIRAMATE 25 MG TAB PO SCH (13:00)
--- NOTE | 2018-07-04 16:23 | PN ---
Date/Time of Note Date/Time of Note DATE: 07/04/18 TIME: 16:19 Objective Vitals Vital Signs Date Temp Pulse Resp B/P (MAP) Pulse Ox O2 O2 Flow FiO2 Time Delivery Rate 07/04/18 72 16:18 07/04/18 98.2 18 117/56 97 15:00 (76) 07/04/18 Room Air 05:20 Intake and Output 07/03/18 07/03/18 07/04/18 1515:00 23:00 07:00 IntakeIntake Total 1200 ml 500 ml BalanceBalance 1200 ml 500 ml Results Result Diagram: 07/04/1831 07/04/18730 Medications Medications Current Medications Benazepril HCl (Lotensin) 20 mg BID PO Last administered on 07/04/18at 09:03; Admin Dose 20 MG; Start 06/30/18 at 21:00 IV Flush (NS 3 ml) 3 ml PER PROTOCOL IV ; Start 06/30/18 at 14:00 Lorazepam (Ativan) 0.5 mg Q6H PRN IV .ANXIETY; Start 06/30/18 at 14:00 Nitroglycerin (Nitroglycerin (Sl Tab) 0.4 Mg) 1 tab Q5M PRN SL .CHEST PAIN; Start 06/30/18 at 14:00 Acetaminophen (Tylenol Tab) 650 mg Q6H PRN PO .PAIN 1-3 OR TEMP Last administered on 07/03/18at 20:58; Admin Dose 650 MG; Start 06/30/18 at 14:00 Acetaminophen/ Hydrocodone Bitart ([place] (5/325)) 1 tab Q6H PRN PO .PAIN 4-6; Start 06/30/18 at 14:00 Morphine Sulfate (morphine) 2 mg Q4H PRN IV .PAIN 7-10 Last administered on 07/02/18at 19:30; Admin Dose 2 MG; Start 06/30/18 at 14:00 Docusate Sodium (Colace) 100 mg Q12H PRN PO .CONSTIPATION; Start 06/30/18 at 1 4:00 Magnesium Hydroxide (Milk Of Mag) 30 ml DAILY PRN PO .CONSTIPATION Last administered on 07/04/18at 15:43; Admin Dose 30 ML; Start 06/30/18 at 14:00 Famotidine (Pepcid) 20 mg Q12 PO Last administered on 07/04/18 09:02; Admin Dose 20 MG; Start 06/30/18 at 21:00 Enoxaparin Sodium (Lovenox) 40 mg DAILY SC Last administered on 07/01/18at 08:29; Admin Dose 40 MG; Start 07/01/18 at 09:00; Status Hold Hydralazine HCl (Apresoline) 10 mg Q4H PRN IV SBP >170 Last administered on 07/03/18 07:56; Admin Dose 10 MG; Start 06/30/18 at 14:00 Aspirin (Aspirin) 81 mg DAILY PO Last administered on 07/04/18 09:02; Admin Dose 81 MG; Start 07/01/18 at 09:00 Atorvastatin Calcium (Lipitor) 80 mg HS PO Last administered on 07/03/18 20:54; Admin Dose 80 MG; Start 07/01/18 at 21:00 Ondansetron HCl (Zofran Inj) 4 mg Q4H PRN IV NAUSEA/VOMITING; Start 07/03/18 at 10:30 Amlodipine Besylate (Norvasc) 10 mg DAILY PO Last administered on 07/04/18 09:03; Admin Dose 10 MG; Start 07/04/18 at 09:00 Ferrous Sulfate (Ferrous Sulfate (Ec)) 325 mg DAILY PO ; Start 07/05/18 at 09:00 Topiramate (Topamax) 25 mg BID PO ; Start 07/04/18 at 21:00 VTE Prophylaxis Risk score (from Ns)>0 risk: 2 SCD applied (from Ns): Yes Lines/Catheters IV Catheter Type: Morgan in Place: No Assessment/Plan Hospital Course Subjective Patient stating she feels well, has a baseline very mild headache that is not bothering everyday activity Objective Physical exam General: Patient is laying in bed and answers questions appropriately Mentation: Patient is alert and oriented 4, Head: Normocephalic atraumatic Eyes: EOMI, pupils reactive to light Neck: Supple, nontender, midline Respiratory: Clear to auscultation bilaterally Cardiovascular: regular rate, no obvious murmurs Gastrointestinal: non-tender to palpation, bowel sounds heard. Neurological: Moves all extremities spontaneously Skin: No new skin lesions Assessment/Plan 1. Acute chest pain, resolved - most likely secondary to hypertensive urgency -Serial troponins negative - EKG without acute ST changes - ECHO noted - TSH and A1c noted - lipid panel noted 2. Right extremity weakness/numbness, resolved - CT scan shows chronic infarcts but given bilateral distribution, concern for embolic infarcts? - MRI showing ?MS vs infarct? - ECHO with bubble ordered - continue Aspirin - cont statin - neurology consulted -MRI cervical noted -Lumbar puncture results noted and some pending still from neurological standpoint 3. Hypertensive urgency - Will continue on home Benazepril and adjust as needed - Will cont Norvasc as well and titrate as needed - PRN hydralazine on board 4. Anemia - will check iron levels, recommend oral supplementation outpatient 5. Diet - Cardiac 6. Disposition -Watch blood pressure -Neurology still pending workup, however due to recently surfaced hx of distance facial numbness and other symptoms, neurology is stating likely MS. DAMON KAUR Jul 04, 2018 16:23
[2018-07-04] MEDS: ATORVASTATIN 80 MG TAB PO SCH (20:09)
[2018-07-04] MEDS: ACETAMINOPHEN 325 MG TAB PO PRN (20:09)
[2018-07-04] MEDS: TOPIRAMATE 25 MG TAB PO SCH (20:10)
[2018-07-04] MEDS: ONDANSETRON 4 MG INJ IV PRN (23:33)
[2018-07-05 01:43] VITALS: BP 124/62; PULSE 71; RESP 20
[2018-07-05] MEDS: METOCLOPRAMIDE 10 MG INJ IV PRN ×2 (02:10→08:14)
[2018-07-05 07:54] VITALS: BP 118/66; PULSE 66; RESP 18
[2018-07-05] MEDS: BENAZEPRIL 20 MG TAB PO SCH ×2 (08:14→21:16)
[2018-07-05] MEDS: FERROUS SULFATE (EC) 325 MG TAB PO SCH (08:14)
[2018-07-05] MEDS: ASPIRIN 81 MG TAB PO SCH (08:15)
[2018-07-05] MEDS: FAMOTIDINE 20 MG TAB PO SCH ×2 (08:15→21:15)
[2018-07-05] MEDS: AMLODIPINE 5 MG TAB PO SCH (08:15)
[2018-07-05] MEDS: TOPIRAMATE 25 MG TAB PO SCH ×2 (08:15→21:16)
[2018-07-05] MEDS: ACETAMINOPHEN 325 MG TAB PO PRN (11:39)
--- NOTE | 2018-07-05 12:19 | CONS ---
Assessment/Plan Assessment/Plan Hospital Course 57 F c/ Hx of HTN..who presents for evaluation of severely elevated BP. She reported R sided weakness in this context... Head CT was obtained, which showed ? chronic lacunes.. Follow up MRI brain revealed multiple subcortical T2 hyperintensities w/ a focus of L periventricular restricted diffusion concerning for demyelination...for which neurology is consulted. She additionally reports a loss of neurologic function 3 months ago... (L face numbness x several days), which is sufficient to corroborate the clinical Dx of relapsing remitting multiple sclerosis. Acute infarction is less likely As an aside, she has frequent headaches w/ photophobia and nausea that are co nsistent w/ migraine without aura MRI C spine is without abnl cord signal.. MRA is unrevealing; Echo was most notable for mild LA enlargement ESR 35 LDL 75 HIV/RPR neg CSF panel wnl; CSF IgG synthesis and oligoclonal bands in process P: OK to hold Topamax given concern for adverse effects.. Recommend Copaxone for probable MS as an outpatient; patient would need to establish outpatient care, secure a prescription, then schedule injection training with [employer] after d/c.. Steroids not presently indicated PT/OT/ST as necessary BP control and other medical management per primary Will follow clinically Consultation Date/Type/Reason Admit Date/Time Jun 30, 2018 at 13:30 Type of Consult Neurology Reason for Consultation abnl MRI brain Requesting Provider: DAMON KAUR Date/Time of Note DATE: 07/05/18 TIME: 12:19 24 HR Interval Summary Free Text/Dictation Continues acute care. Pt has c/o nausea/vomiting with topamax. Is otherwise neurologically asymptomatic. Exam Vital Signs Vitals Vital Signs Date Temp Pulse Resp B/P (MAP) Pulse Ox O2 O2 Flow FiO2 Time Delivery Rate 07/05/18 97.9 66 18 118/66 99 07:54 (83) 07/04/18 Room Air 18:00 Intake and Output 07/04/18 07/04/18 07/05/18 1515:00 23:00 07:00 IntakeIntake Total 850 ml BalanceBalance 850 ml Exam PE: Gen Appearance: No Apparent Distress HEENT: Normocephalic Cardiovascular: Regular rate Lungs: Clear bilaterally Abdomen: Soft Extremities: Dry NE: The patient was alert and oriented. Language was normal. Fund of knowledge was normal. Pupils were equal and reactive to light. There was no afferent pupillary defect. Visual kevin were normal. Funduscopic examination was limited. Extra-ocular movements were full. Ptosis was absent. There was no nystagmus. Facial sensation was normal. Face was symmetric with normal strength. Hearing was intact. Palate movements were normal. Neck strength was normal. There was normal tongue bulk and speed of movement. Tone was normal. Muscle bulk was normal. I did not see fasciculations. Arms and legs were strong. Vibration sensation was normal. Temperature and pinprick sensation was normal. Rapid alternating movements were normal. There was no dysmetria. There was no intention tremor. Gait was deferred due to bedrest. Arm and leg reflexes were 2+ and symmetric. Raza's sign was absent. Plantar responses were flexor. JEREMY GUZMAN NP Jul 05, 2018 12:19 KELLY BOTELLO Jul 05, 2018 15:42
--- NOTE | 2018-07-05 12:49 | PN ---
Date/Time of Note Date/Time of Note DATE: 07/05/18 TIME: 12:48 Objective Vitals Vital Signs Date Temp Pulse Resp B/P (MAP) Pulse Ox O2 O2 Flow FiO2 Time Delivery Rate 07/05/18 97.9 66 18 118/66 99 07:54 (83) 07/04/18 Room Air 18:00 Intake and Output 07/04/18 07/04/18 07/05/18 1515:00 23:00 07:00 IntakeIntake Total 850 ml BalanceBalance 850 ml Results Result Diagram: 07/05/18 0534 07/05/18 0534 Medications Medications Current Medications Benazepril HCl (Lotensin) 20 mg BID PO Last administered on 07/05/18at 08:14; Admin Dose 20 MG; Start 06/30/18 at 21:00 IV Flush (NS 3 ml) 3 ml PER PROTOCOL IV ; Start 06/30/18 at 14:00 Lorazepam (Ativan) 0.5 mg Q6H PRN IV .ANXIETY; Start 06/30/18 at 14:00 Nitroglycerin (Nitroglycerin (Sl Tab) 0.4 Mg) 1 tab Q5M PRN SL .CHEST PAIN; Start 06/30/18 at 14:00 Acetaminophen (Tylenol Tab) 650 mg Q6H PRN PO .PAIN 1-3 OR TEMP Last administered on 07/05/18at 11:39; Admin Dose 650 MG; Start 06/30/18 at 14:00 Acetaminophen/ Hydrocodone Bitart ([place] (5/325)) 1 tab Q6H PRN PO .PAIN 4-6; Start 06/30/18 at 14:00 Morphine Sulfate (morphine) 2 mg Q4H PRN IV .PAIN 7-10 Last administered on 07/02/18at 19:30; Admin Dose 2 MG; Start 06/30/18 at 14:00 Docusate Sodium (Colace) 100 mg Q12H PRN PO .CONSTIPATION; Start 06/30/18 at 14:00 Magnesium Hydroxide (Milk Of Mag) 30 ml DAILY PRN PO .CONSTIPATION Last administered on 07/04/18at 15:43; Admin Dose 30 ML; Start 06/30/18 at 14:00 Famotidine (Pepcid) 20 mg Q12 PO Last administered on 07/05/18at 08:15; Admin Dose 20 MG; Start 06/30/18 at 21:00 Enoxaparin Sodium (Lovenox) 40 mg DAILY SC Last administered on 07/01/18 08:29; Admin Dose 40 MG; Start 07/01/18 at 09:00; Status Hold Hydralazine HCl (Apresoline) 10 mg Q4H PRN IV SBP >170 Last administered on 07/03/18 07:56; Admin Dose 10 MG; Start 06/30/18 at 14:00 Aspirin (Aspirin) 81 mg DAILY PO Last administered on 07/05/18 08:15; Admin Dose 81 MG; Start 07/01/18 at 09:00 Atorvastatin Calcium (Lipitor) 80 mg HS PO Last administered on 07/04/18 20:09; Admin Dose 80 MG; Start 07/01/18 at 21:00 Ondansetron HCl (Zofran Inj) 4 mg Q4H PRN IV NAUSEA/VOMITING Last administered on 07/04/18 23:33; Admin Dose 4 MG; Start 07/03/18 at 10:30 Amlodipine Besylate (Norvasc) 10 mg DAILY PO Last administered on 07/05/18 08:15; Admin Dose 10 MG; Start 07/04/18 at 09:00 Ferrous Sulfate (Ferrous Sulfate (Ec)) 325 mg DAILY PO Last administered on 07/05/18 08:14; Admin Dose 325 MG; Start 07/05/18 at 09:00 Topiramate (Topamax) 25 mg BID PO Last administered on 07/05/18 08:15; Admin Dose 25 MG; Start 07/04/18 at 21:00 Metoclopramide HCl (Reglan) 10 mg Q6H PRN IV NAUSEA Last administered on 07/05/18 08:14; Admin Dose 10 MG; Start 07/05/18 at 02:00 VTE Prophylaxis Risk score (from Nsg)>0 risk: 2 SCD applied (from Nsg): No SCD contraindication: other Lines/Catheters IV Catheter Type: Morgan in Place: No Assessment/Plan Hospital Course Subjective Patient stating she is still nauseated, had intractable nausea and vomiting last night, had mild recurrence of her right arm and facial symptoms, however those have mostly resolved. Objective Physical exam General: Patient is laying in bed and answers questions appropriately Mentation: Patient is alert and oriented 4, Head: Normocephalic atraumatic Eyes: EOMI, pupils reactive to light Neck: Supple, nontender, midline Respiratory: Clear to auscultation bilaterally Cardiovascular: regular rate, no obvious murmurs Gastrointestinal: non-tender to palpation, bowel sounds heard. Neurological: Moves all extremities spontaneously Skin: No new skin lesions Assessment/Plan 1. Acute chest pain, resolved - most likely secondary to hypertensive urgency -Serial troponins negative - EKG without acute ST changes - ECHO noted - TSH and A1c noted - lipid panel noted Nausea vomiting -Possible side effect of medication, neurology recommendations appreciated to adjust Topamax 2. Right extremity weakness/numbness, resolving, neurology believes this is more like MS now - CT scan shows chronic infarcts but given bilateral distribution, concern for embolic infarcts? - MRI showing ?MS vs infarct? - ECHO with bubble ordered - continue Aspirin - cont statin - neurology consulted -MRI cervical noted -Lumbar puncture results noted and some pending still from neurological standpoint 3. Hypertensive urgency - Will continue on home Benazepril and adjust as needed - Will cont Norvasc as well and titrate as needed - PRN hydralazine on board 4. Anemia -checked iron levels, recommend oral supplementation outpatient 5. Diet - Cardiac 6. Disposition -Watch blood pressure -Watch nausea and vomiting -Neurology spent a lot of time with patient and patient's daughters to explain how she should follow-up regarding her uninsured status. DAMON KAUR Jul 05, 2018 12:49
[2018-07-05 14:00] VITALS: BP 114/64; PULSE 66; RESP 18
[2018-07-05] MEDS: ONDANSETRON 4 MG INJ IV PRN (14:00)
[2018-07-05] MEDS ORDERED: KETOROLAC 30 MG INJ IV STA (14:28)
[2018-07-05 17:00] VITALS: BP 114/80; PULSE 80; RESP 18
[2018-07-05 20:05] VITALS: BP 122/65; PULSE 73; RESP 18
[2018-07-05] MEDS: ATORVASTATIN 80 MG TAB PO SCH (21:15)
[2018-07-06 02:02] VITALS: BP 116/63; PULSE 70; RESP 18
[2018-07-06 07:15] VITALS: BP 125/67; PULSE 65; RESP 16
[2018-07-06] MEDS: FERROUS SULFATE (EC) 325 MG TAB PO SCH (09:07)
[2018-07-06] MEDS: AMLODIPINE 5 MG TAB PO SCH (09:08)
[2018-07-06] MEDS: BENAZEPRIL 20 MG TAB PO SCH (09:09)
[2018-07-06] MEDS: FAMOTIDINE 20 MG TAB PO SCH (09:09)
[2018-07-06] MEDS: TOPIRAMATE 25 MG TAB PO SCH (09:09)
[2018-07-06] MEDS: ASPIRIN 81 MG TAB PO SCH (09:09)
--- NOTE | 2018-07-06 09:20 | CONS ---
Assessment/Plan Assessment/Plan Hospital Course 57 F c/ Hx of HTN..who presents for evaluation of severely elevated BP. She reported R sided weakness in this context... Head CT was obtained, which showed ? chronic lacunes.. Follow up MRI brain revealed multiple subcortical T2 hyperintensities w/ a focus of L periventricular restricted diffusion concerning for demyelination...for which neurology is consulted. She additionally reports a loss of neurologic function 3 months ago... (L face numbness x several days), which is sufficient to corroborate the clinical Dx of relapsing remitting multiple sclerosis. Acute infarction is less likely As an aside, she has frequent headaches w/ photophobia and nausea that are co nsistent w/ migraine without aura MRI C spine is without abnl cord signal.. MRA is unrevealing; Echo was most notable for mild LA enlargement ESR 35 LDL 75 HIV/RPR neg CSF panel wnl; CSF IgG synthesis and oligoclonal bands in process P: OK to hold Topamax given concern for adverse effects.. Recommend Copaxone for probable MS as an outpatient; patient would need to establish outpatient care, secure a prescription, then schedule injection training with [employer] after d/c.. Steroids not presently indicated PT/OT/ST as necessary BP control and other medical management per primary Will follow clinically Consultation Date/Type/Reason Admit Date/Time Jun 30, 2018 at 13:30 Type of Consult Neurology Requesting Provider: DAMON KAUR Date/Time of Note DATE: 07/06/18 TIME: 09:20 24 HR Interval Summary Free Text/Dictation Continues acute care. Pt is without c/o headache, N/V today. Exam Vital Signs Vitals Vital Signs Date Temp Pulse Resp B/P (MAP) Pulse Ox O2 O2 Flow FiO2 Time Delivery Rate 07/06/18 97.6 65 16 125/67 99 Room Air 07:15 (86) Intake and Output 07/05/18 07/05/18 07/06/18 1515:00 23:00 07:00 IntakeIntake Total 640 ml 200 ml 1125 ml BalanceBalance 640 ml 200 ml 1125 ml Exam PE: Gen Appearance: No Apparent Distress HEENT: Normocephalic Cardiovascular: Regular rate Lungs: Clear bilaterally Abdomen: Soft Extremities: Dry NE: The patient was alert and oriented. Language was normal. Fund of knowledge was normal. Pupils were equal and reactive to light. There was no afferent pupillary defect. Visual kevin were normal. Funduscopic examination was limited. Extra-ocular movements were full. Ptosis was absent. There was no nystagmus. Facial sensation was normal. Face was symmetric with normal strength. Hearing was intact. Palate movements were normal. Neck strength was normal. There was normal tongue bulk and speed of movement. Tone was normal. Muscle bulk was normal. I did not see fasciculations. Arms and legs were strong. Vibration sensation was normal. Temperature and pinprick sensation was normal. Rapid alternating movements were normal. There was no dysmetria. There was no intention tremor. Gait was deferred due to bedrest. Arm and leg reflexes were 2+ and symmetric. Raza's sign was absent. Plantar responses were flexor. JEREMY GUZMAN NP Jul 06, 2018 09:20 KELLY BOTELLO Jul 06, 2018 12:45
[2018-07-06] MEDS ORDERED: ASPI-831 PO (13:28)
[2018-07-06] MEDS ORDERED: BENA20TA4 PO (13:28)
[2018-07-06] MEDS ORDERED: AMLO-147 PO (13:28)
[2018-07-06] MEDS ORDERED: ATOR-2 PO (13:28)
[2018-07-06] MEDS ORDERED: TOPI25TA PO (13:28)
--- NOTE | 2018-07-06 13:37 | PDOCDIS ---
Discharge Instructions CONDITION [id number] Patient Condition: [id number] Stable FOLLOW UP/APPOINTMENTS Follow-up Plan 1. As discussed with the neurologist while in the hospital, [place] [facility] [facility] and [place] insurance in order to closely follow your diagnosis of multiple sclerosis. 2. Please continue medications provided at discharge, he will need to follow-up in [facility] clinic for continued prescriptions. Please watch her blood pressure. DAMON KAUR Jul 06, 2018 13:37
--- NOTE | 2018-07-06 13:44 | DS ---
Date/Time of Note Date/Time of Note DATE: 07/06/18 TIME: 13:44 Discharge Summary Admission/Discharge Info Admit Date/Time Jun 30, 2018 at 13:30 Discharge Date/Time Patient Condition: Stable Hospital Course Patient is a female with a past medical history significant for hypertension who presented to [facility] for chest pain, right upper extremity weakness and elevated blood pressure. Patient was ruled out for ACS however had continued workup for her right upper extremity weakness. Patient was found to have a history of likely migraine with aura associated with photophobia and nausea which is chronic. Patient was also diagnosed with relapsing and remitting multiple sclerosis. Patient's symptoms resolved at the time of discharge however due to patient's not having insurance, patient had an extended stay to make sure all odds and ends were taking care of. Neurologist here at [facility] had an extensive conversation with patient and patient's family and since patient is currently asymptomatic regarding her MS, patient will follow up in the [facility] clinic with resources given by bilingual social worker. Patient's daughter also knows to follow-up in order to obtain insurance and to follow with a neurologist as soon as possible in order to start patient on immunomodulator therapy. Patient was started on Topamax for her chronic migraines however it was thought that the elevated dose was causing her additional nausea and vomiting, however patient nausea and vomiting appeared to resolve and patient tolerated the medication well. Patient will be discharged with a prescription of Topamax as well. Patient's blood pressure medications was optimized and patient will also be given new prescription for those medication as well as a prescription for aspirin and cholesterol medication for stroke prevention. Patient also told to take an [id number] iron supplement. Patient feeling well will be discharged today. Patient has no symptoms. Discharge diagnosis Acute chest pain, resolved Nausea and vomiting, resolved Right extremity weakness and numbness, resolved Likely relapsing and remitting multiple sclerosis Hypertensive urgency, resolved Anemia, mild Migraine with aura, chronic next Home Meds Active Scripts Topiramate* (Topamax*) 25 Mg Tablet, 25 MG PO BID for 30 Days, #60 TAB 2 Refills Prov:DAMON KAUR 07/06/18 Aspirin (Aspirin) 81 Mg Chew, 81 MG PO DAILY for 30 Days, #30 TAB 2 Refills Prov:DAMON KAUR 07/06/18 Atorvastatin* (Atorvastatin*) 80 Mg Tablet, 80 MG PO HS for 30 Days, #30 TAB 2 Refills Prov:DAMON KAUR 07/06/18 Amlodipine Besylate* (Amlodipine Besylate*) 10 Mg Tablet, 10 MG PO DAILY, #30 TAB 2 Refills Prov:DAMON KAUR 07/06/18 Benazepril Hcl* (Benazepril Hcl*) 20 Mg Tablet, 20 MG PO BID for 30 Days, #60 TAB 2 Refills Prov:DAMON KAUR 07/06/18 Follow-up Plan 1. As discussed with the neurologist while in the hospital, you need to follow- up in the [facility] clinic and obtain insurance in order to closely follow your diagnosis of multiple sclerosis. 2. Please continue medications provided at discharge, he will need to follow-up in [facility] clinic for continued prescriptions. Please watch her blood pressure. Primary Care Provider Care Physician No Primary Time spent on discharge: > 30 minutes DAMON KAUR Jul 06, 2018 13:44
[2018-07-06 14:12] VITALS: BP 120/67; PULSE 71; RESP 16
== END 2018-07-06 16:00 | disposition home or self-care (01) | DRG 305 ==
LOC: E/R 11:42 → TEL 13:30 → 5EC 07-04 18:05 → PP2 07-05 16:25
PROVIDERS: ADMIT Internal Medicine; ATTEND Internal Medicine
DX: I16.0 Hypertensive urgency (principal); I16.1 Hypertensive emergency; G35 Multiple sclerosis; R07.9 Chest pain, unspecified; G43.109 Migraine with aura, not intractable, without status migrainosus; R11.2 Nausea with vomiting, unspecified; D64.9 Anemia, unspecified; R53.1 Weakness; R20.0 Anesthesia of skin; I10 Essential (primary) hypertension; Z79.82 Long term (current) use of aspirin
CPT/HCPCS: 36415; 70450; 70546; 70553; 71045; 72156; 80048; 80053; 80061; 80307; 81003; 82040; 82042; 82550; 82553; 82784; 82945; 83036; 83540; 83690; 83735; 84100; 84157; 84443; 84484; 85025; 85049; 85610; 85651; 85670; 85730; 86592; 86703; 87070; 89051; 93005; 93306; 96374; 97161; J0360; J1650; J1885; J2270; J2405; J2765